=== PATIENT | female | born 1985 | race Caucasian/White ===

== ENCOUNTER 2016-06-10 20:27 | Emergency (ER) | payer MEDICAID ==
[~2016-06-10] VITALS: Ht 167.6 cm; Wt 110.7 kg
[~2016-06-10 20:27] MED LIST: ACYC-113 PO; DOCU-30 PO; FERR324T13 PO; HYDR-3138 PO; IBUP-1222 PO; NITR100C56 PO; ONDA4TAB10 PO; PREN1TAB60 PO
[2016-06-10 21:05] LABS: PATH.CAST-FLAG NOT PRESENT; SPERM-FLAG NOT PRESENT; SRC-FLAG NOT PRESENT; XTAL-FLAG NOT PRESENT; YLC-FLAG NOT PRESENT
[2016-06-10] MEDS ORDERED: ACETAMINOPHEN 325 MG TABLET PO ONE (21:30)
[2016-06-10] MEDS ORDERED: PHENAZOPYRIDINE 200 MG TABLET PO ONE (21:30)
[2016-06-10] MEDS ORDERED: NITROFURANTOIN (MACROBID) 100 MG CAPSULE PO ONE (21:30)
[2016-06-10] MEDS ORDERED: ACETAMINOPHEN 325 MG TABLET ONE (21:36)
[2016-06-10] MEDS ORDERED: PHENAZOPYRIDINE 200 MG TABLET ONE (21:36)
[2016-06-10 21:38] LABS: HCG UR OBC PASS
[2016-06-10 22:06] VITALS: BP 119/76
== END 2016-06-10 22:08 | disposition home or self-care (01) ==
LOC: ED 22:02
DX: N30.00 Acute cystitis without hematuria (principal); M54.5 Low back pain; R10.2 Pelvic and perineal pain
CPT/HCPCS: 81001; 81025; 87086; 99284